=== PATIENT | male | born 1960 | race Caucasian/White ===

== ENCOUNTER 2019-04-16 20:00 | Outpatient (CLI) | payer BC, SELFPAY | END 2019-04-16 20:01 | disposition home or self-care (01) | LOC: SLEEP 04-17 08:56 | PROVIDERS: Family Provider Family Medicine; PCP Family Medicine; Visit Provider Internal Medicine Critical Care Medicine | DX: G47.33 Obstructive sleep apnea (adult) (pediatric) (principal) | CPT/HCPCS: 95810 ==

== ENCOUNTER 2019-05-22 10:36 | Outpatient (CLI) | payer OTHER, SELFPAY ==
--- NOTE | 2019-05-22 10:43 | XR_ITS ---
WS: [id number] Cervical spine, 3 views, 05/22/2019 Clinical Data: CERVICAL SPINE TENDERNESS DECREASED RANGE OF MOTION Comparison: None. Findings: No compression fractures are seen. There is degenerative disc narrowing at C4-C5 and C5-C6. Anterior osteoarthritic spurring at C4-C5 and C5-C6 can be seen. There is loss of the normal lordoti c curvature. There is no prevertebral soft tissue swelling. The odontoid is unremarkable. The soft ti ssues of the neck and the lung apices are normal. XR/XR cervical spine 3V* [id number] Impression: 1. 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 2. Degenerative disc disease at C4-C5 and C5-C6.
== END 2019-05-22 10:37 | disposition home or self-care (01) ==
LOC: RAD 10:40
PROVIDERS: Family Provider Family Medicine; PCP Family Medicine; Visit Provider Dermatology Procedural Dermatology
DX: M47.892 Other spondylosis, cervical region (principal); M54.2 Cervicalgia
CPT/HCPCS: 72040

== ENCOUNTER 2019-08-29 14:11 | Emergency (ER) | payer BC, SELFPAY ==
[2019-08-29 14:14] VITALS: BMI 27.2
[2019-08-29 14:21] VITALS: BP 140/81; PULSE 88; RESP 16; TEMP 36.8; O2SAT 97
--- NOTE | 2019-08-29 14:22 | W.ED.SYNCOPE ---
HPI - Syncope General: Chief Complaint: Syncope Stated Complaint: syncope, fall Time Seen by Provider: 08/29/19 14:17 History of Present Illness: HPI narrative: 59 yo male present with c/o syncopal episode after coughing fit patient had a stroke previously and he frequently has coughing spells related to residual of the stroke. 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 He has bleeding in his forearm and his roman catholic. He is not been running a fever he has not had a productive cough he is not been particularly short of breath this is just been a simple recurrent coughing fits he has had this since he had his stroke. Patient reports his tetanus is up-to-date MD complaint: loss of consciousness Onset (ago): minute(s) -: second(s) Prodromal symptoms: other (Coughing fits) Witnessed: No Context: at rest Injuries sustained associated with event: face and LUE Associated symptoms: Reports other (Vasovagal episode secondary to coughing fit); Deny abdominal pain, chest pain, fever(s) or nausea History: other (History of coughing fits secondary to previous stroke) Treatments prior to arrival: wound care Review of Systems Const: Denies: fever(s), chills, body aches, change in appetite, fatigue or malaise ENMT: Denies: throat pain, ear or mastoid pain, nasal discharge or nasal congestion Card: Denies: chest pain, edema, dyspnea on exertion or orthopnea Resp: Denies: dyspnea, productive cough or non-productive cough GI: Denies: abdominal pain, nausea, vomiting, hematemesis, coffee ground emesis, diarrhea, constipation, bloating, hematochezia or melena : Denies: flank pain, dysuria, urinary frequency or urinary urgency Skin/Breast: Denies: rash or pruritus PFSH ED PFSH: Medical History Dyslipidemia Stroke TIA (transient ischemic attack) Surgical History H/O eye surgery History of mandibular surgery Family History Father Hypertension Mother Cancer Grandmother Stroke Social History Smoking and tobacco status: never smoked Alcohol intake: never Lives independently: Yes Household members: spouse Marital status: Current occupational status: unemployed History of recent travel: No Current gender identity: Male Physical Exam Const: COMMON NORMALS: no acute distress GENERAL APPEARANCE: cooperative and comfortable ORIENTATION/CONSCIOUSNESS: Yes awake, Yes oriented to person, Yes oriented to place and Yes oriented to time HENMT: COMMON NORMALS: normocephalic and external ears normal HEAD & SCALP: normocephalic EXTERNAL EAR: Yes external ears normal Eye: COMMON NORMALS: Equal, round and reactive pupils present, EOMs intact bilaterally, conjunctivae normal and no scleral icterus CONJUNCTIVA: Yes conjunctivae normal PUPIL: Yes Equal, round and reactive pupils present Neck/C-Spine: COMMON NORMALS: full ROM, no lymphadenopathy, supple and no JVD Lymph: LYMPHATIC: no lymphadenopathy noted and no lymphedema noted Resp: COMMON NORMALS: normal respiratory effort, No retractions, No use of accessory muscles and clear to auscultation bilaterally AUSCULTATION: clear to auscultation bilaterally Cardio: COMMON NORMALS: no JVD, regular rate, regular rhythm and No murmurs present (Cardio) RATE: regular rate RHYTHM: regular rhythm GI: COMMON NORMALS: Soft to palpation and No hepatosplenomegaly present AUSCULTATION: Yes normoactive bowel sounds PALPATION: Yes Soft to palpation, No Tenderness to palpation present (GI), No Guarding due to palpation present (GI) and Yes No hepatosplenomegaly present Extremity: COMMON NORMALS: normal to inspection, capillary refill normal, no clubbing, cyanosis or edema, no calf tenderness and no pedal edema Neuro: SENSORIUM/ORIENTATION: Yes oriented to person, Yes oriented to place and Yes oriented to time Skin: NARRATIVE SKIN EXAM: Patient is a small laceration of the left forearm as well as a right temporal temporomandibular area Course Vital Signs: Vital signs: Vital Signs Temperature 98.3 F 08/29/19 14:21 Pulse Rate 90 08/29/19 15:57 Respiratory Rate 24 H 08/29/19 15:57 Blood Pressure 134/81 08/29/19 15:57 Pulse Oximetry 95 08/29/19 15:57 MDM - Syncope MDM Narrative: Medical decision making narrative: Patient is feeling much better. Evidently has had these episodes in the past I think what precipitated this was the coughing. Reviewing the small areas on the forearm the right temporomandibular area there is not really anything we can do is for suturing there more abrasions topical anti-biotic ointment follow-up as needed Lab Data: Labs: Lab Results 08/29/19 08/29/19 Range/Units 15:25 15:25 WBC 7.9 (4.0-10.0) 10^3/ uL RBC 5.26 (4.1-5.3) 10^6/u L Hgb 14.8 (11.7-16.6) g/dL Hct 44.7 (42.0-52.0) % MCV 85.0 (80-94) fL MCH 28.1 (28.0-34.0) pg MCHC 33.1 (30.0-36.0) g/dL RDW 12.7 (12.1-15.1) % Plt Count 283 (130-400) 10^3/c mm MPV 8.3 (7.4-10.4) fL Neut % (Auto) 64.3 % Lymph % (Auto) 24.6 % [place] % (Auto) 7.4 % Eos % (Auto) 2.8 % Baso % (Auto) 0.6 % Neut # (Auto) 5.1 (1.8-7.7) 10^3/u L Lymph # (Auto) 1.9 (0.8-4.8) 10^3/u L [place] # (Auto) 0.6 (0.2-0.9) 10^3/u L Eos # (Auto) 0.2 (0.0-0.8) 10^3/u L Baso # (Auto) 0.1 (0.0-0.1) 10^3/u L Nucleated RBC % (a uto) 0 % Nucleated RBCs # 0.0 /100WBC Sodium 139 (136-145) mmol/L Potassium 3.7 (3.5-5.1) mmol/L Chloride 102 (98-107) mmol/L Carbon Dioxide 23 (22-29) mmol/L Anion Gap 17.7 (5-19) BUN 14 (8-23) mg/dL Creatinine 0.7 (0.7-1.2) mg/dL GFR Calculation 115.0 (90-130) mL/min Glucose 146 H (65-115) mg/dL Calculated Osmolal ity 287 (285-295) mOsm/k g Calcium 9.2 (8.5-10.5) mg/dL Discharge Plan Discharge Patient Disposition: Home, Self-Care Clinical Impression: Vasovagal syncope, Abrasion of skin Condition: Stable Prescriptions: New mupirocin 2 % ointment 1 applic TOPICAL BID Qty: 22 RF: 0 No Action ascorbic acid (vitamin C) 1,000 mg tablet 1 gm PO DAILY RF: 0 calcium polycarbophil [Fiber (calcium polycarbophil)] 625 mg tablet 1,250 mg PO DAILY RF: 0 aspirin [Adult Aspirin Regimen] 81 mg tablet,delayed release (DR/EC) 81 mg PO DAILY RF: 0 losartan 100 mg tablet 100 mg PO DAILY RF: 0 Complete Multivitamin Tablet 1 tab PO DAILY RF: 0 amlodipine 10 mg tablet 10 mg PO DAILY RF: 0 Discharge Orders: Discharge Order (Routine); Ordered 08/29/19 Ordered By: Louis Cisse Referrals: Eliceo To DO [Primary Care Provider] - Discharge Date/Time: 08/29/19 15:57 Coding Level of Care Code ED Portable Pinch Riveter for Chg Fwd Exam Comprehensive
--- NOTE | 2019-08-29 14:31 | PC.NURSE ---
EKG done at 1430 and shown to ER doctor
[2019-08-29 14:32] VITALS: O2SAT 96
--- NOTE | 2019-08-29 15:11 | XRR_ITS ---
PROCEDURE INFORMATION: Exam: XR Left Forearm Exam date and time: 08/29/2019 3:35 PM Age: 59 years old Clinical indication: Injury or trauma; Fall; Initial encounter; Blunt trauma (contusions or hematomas; Arm, lower; Left; Additional info: Fall, trauma TECHNIQUE: Imaging protocol: XR Left forearm. Views: 2 views. COMPARISON: No relevant prior studies available. FINDINGS: Bones/joints: No acute fracture. No dislocation. Bones are mildly osteopenic. Moderate degenerative changes present at the at the 1st CMC joint. Small calcified enthesophyte at the triceps tendon insertion. Soft tissues: Mild soft tissue swelling at the dorsal/lateral proximal forearm. No radiopaque foreign body. XR/XR forearm LT 2V [id number] IMPRESSION: 1. No acute fracture. Followup imaging recommended in 7-14 days if clinical concern for fracture persists. 2. Mild soft tissue swelling at the dorsal/lateral proximal forearm.
[2019-08-29 15:22] VITALS: BP 137/87; PULSE 88; RESP 12; O2SAT 96
--- NOTE | 2019-08-29 15:24 | PC.NURSE ---
wound to right forehead and left forearm irrigated with sterile water.
[2019-08-29 15:32] LABS: Basophils # 0.1 10^3/uL (0.0-0.1); Basophils % 0.6 %; Eosinophils # 0.2 10^3/uL (0.0-0.8); Eosinophils % 2.8 %; Hematocrit 44.7 % (42.0-52.0); Hemoglobin 14.8 g/dL (11.7-16.6); Lymphocytes # 1.9 10^3/uL (0.8-4.8); Lymphocytes % 24.6 %; Mean Corpuscular HGB Conc 33.1 g/dL (30.0-36.0); Mean Corpuscular Hemoglobin 28.1 pg (28.0-34.0); Mean Platelet Volume 8.3 fL (7.4-10.4); Monocytes # 0.6 10^3/uL (0.2-0.9); Monocytes % 7.4 %; Neutrophils # 5.1 10^3/uL (1.8-7.7); Neutrophils % 64.3 %; Nucleated Red Blood Cells % 0 %; Platelet Count 283 10^3/cmm (130-400); Red Blood Count 5.26 10^6/uL (4.1-5.3); Red Cell Distribution Width 12.7 % (12.1-15.1); White Blood Count 7.9 10^3/uL (4.0-10.0)
[2019-08-29 15:46] LABS: Anion Gap 17.7 (5-19); Blood Urea Nitrogen 14 mg/dL (8-23); Calcium 9.2 mg/dL (8.5-10.5); Carbon Dioxide 23 mmol/L (22-29); Chloride 102 mmol/L (98-107); Glucose 146 mg/dL (65-115); Osmolality Calculated 287 mOsm/kg (285-295); Potassium 3.7 mmol/L (3.5-5.1); Sodium 139 mmol/L (136-145)
[2019-08-29 15:57] VITALS: BP 134/81; PULSE 90; RESP 24; O2SAT 95
--- NOTE | 2019-08-29 16:12 | PC.NURSE ---
wounds dressed with neosporin and bandaid at verbal order of dr. hickman
--- NOTE | 2019-08-29 16:36 | ECG_ITS ---
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 Measurements Intervals [place] Rate: 94 P: 55 [place]: 163 QRS: -42 QRSD: 112 T: 49 QT: 386 QTc: 483 Interpretive Statements SINUS RHYTHM WITH FREQUENT VENTRICULAR PREMATURE COMPLEXES POSSIBLE LEFT ATRIAL ENLARGEMENT [-0.1mV P WAVE IN V1/V2] LEFT AXIS DEVIATION [QRS AXIS < -30] PATTERN CONSISTENT WITH PULMONARY DISEASE INCOMPLETE RIGHT BUNDLE BRANCH BLOCK [90+ ms QRS DURATION, TERMINAL R IN V1/V2, 40+ ms S IN I/aVL/V4/V5/V6] MINIMAL ST DEPRESSION [0.025+ mV ST DEPRESSION] Compared to ECG 03/17/2015 15:24:18 Ventricular premature complex(es) now present Incomplete right bundle-branch block now present Left ventricular hypertrophy no longer present ST (T wave) deviation still present Electronically Signed On 08-29-2019 17:47:11 CDT by Aaron Bustamante M.D. [email or web address]
== END 2019-08-29 15:57 | disposition home or self-care (01) ==
PROVIDERS: Emergency Provider Family Medicine; Family Provider Family Medicine; PCP Family Medicine
DX: R55 Syncope and collapse (principal); Z79.82 Long term (current) use of aspirin; S50.812A Abrasion of left forearm, initial encounter; S00.81XA Abrasion of other part of head, initial encounter; W19.XXXA Unspecified fall, initial encounter; E78.5 Hyperlipidemia, unspecified; Z86.73 Personal history of transient ischemic attack (TIA), and cerebral infarction without residual deficits
CPT/HCPCS: 12345; 36415; 73090; 80048; 85025; 93005; 99281; 99283

== ENCOUNTER → 2021-09-10 08:37 | Outpatient (BNVA) | payer MEDICARE, SELFPAY | PROVIDERS: Family Provider Family Medicine; PCP Family Medicine; Visit Provider Internal Medicine Critical Care Medicine | DX: G47.33 Obstructive sleep apnea (adult) (pediatric) (principal); R42 Dizziness and giddiness; R04.0 Epistaxis | CPT/HCPCS: 99213 ==

== ENCOUNTER → 2022-03-18 14:17 | Outpatient (BNVA) | payer MEDICARE, SELFPAY | PROVIDERS: Family Provider Family Medicine; PCP Family Medicine; Visit Provider Internal Medicine Pulmonary Disease | DX: G47.33 Obstructive sleep apnea (adult) (pediatric) (principal); R42 Dizziness and giddiness; R04.0 Epistaxis | CPT/HCPCS: 99214 ==